=== PATIENT | female | born 1960 | race Caucasian/White ===

== ENCOUNTER 2023-10-04 11:29 | Emergency (ER) | payer BC, SELFPAY ==
[2023-10-04 11:49] VITALS: BP 154/85; PULSE 75; RESP 17; TEMP 36.6; O2SAT 96; BMI 28.3
--- NOTE | 2023-10-04 12:17 | ED_ITS ---
HPI - Ear Problem <KIMMY Cordova - Last Filed: 10/04/23 12:32> General Chief complaint: Ear Stated complaint: chronic both ear infection per pt Time Seen by Provider: 10/04/23 11:56 Source: patient Mode of arrival: Ambulatory History of Present Illness HPI Narrative: 63-year-old female, former smoker, presents to the emergency department with sinus and bilateral ear pressure and pain times 16 days. Patient states that she was seen twice in that time frame and diagnosed with Eustachian tube dysfunction and given Augmentin x7 days, prednisone and Afrin for 3 days. Second visit recommended Flonase nasal spray and to continue with the antibiotics. Patient contacted her family doctor about getting ENT referral but decided to come to the emergency department in case quicker treatment is possible. Last day of antibiotics was yesterday. Related Data Previous Rx's Medication Instructions Recorded amoxicillin 875 mg-potassium 1 tab PO BID Sinusitis 3 days #6 10/04/23 clavulanate 125 mg tablet tabs Allergies Allergy/AdvReac Type Severity Reaction Status Date / Time No Known Drug Allergies Allergy Verified 10/04/23 11:49 Review of Systems <KIMMY Cordova - Last Filed: 10/04/23 12:32> Review of Systems Narrative: Narrative: See HPI. GENERAL: Denies chills, fatigue, fever, sweats. HEENT: Denies sore throat, difficulty swallowing, dizziness. Endorses sinus pain and bilateral ear pain. RESPIRATORY: Denies dyspnea, cough, wheezing, sputum. CARDIOVASCULAR: Denies chest pain, palpitations, edema. GASTROINTESTINAL: Denies nausea, vomiting, abdominal pain, diarrhea, constipation. : Denies dysuria, frequency, incontinence, hematuria, urinary retention, flank pain. MSK: Denies weakness, joint pain, or bony pain. SKIN: Denies rash, skin lesions, or pruritis. NEUROLOGIC: Denies weakness, dizziness, headache, numbness, confusion. PSYCHIATRIC: No concerning psychosocial issues. Patient History <KIMMY Cordova - Last Filed: 10/04/23 12:32> Social History Smoking Status: Former smoker Smoking Status: Former smoker Substance Use Type: does not use Exam <KIMMY Cordova - Last Filed: 10/04/23 12:32> Narrative Exam Narrative: Exam Narrative: GENERAL: This is a well-nourished, well-developed patient, in no acute distress. HEAD: Atraumatic. Normocephalic. EYES: Pupils equal round and reactive. Extraocular motions intact. No scleral icterus, injection or drainage. ENT: Nose without bleeding, purulent drainage. Throat without erythema, tonsillar hypertrophy or exudate. Uvula midline. Airway patent. TMs and canals clear, with significant effusion. Pansinus tenderness. NECK: Trachea midline. No JVD or lymphadenopathy. Nontender. CARDIOVASCULAR: Regular rate and rhythm without murmurs, peripheral pulses intact, cap refill <2 sec. RESPIRATORY: Breath sounds equal and clear bilaterally. No wheezes, rales, or rhonchi. No cough. No increased respiratory effort. No accessory muscle use. MSK: Moves all extremities. Normal range of motion, no clubbing or edema. Neurovascularly intact. NEURO: A&O x 3. SKIN: Warm, dry, no rashes or lesions noted. Initial Vital Signs Initial Vital Signs: Vital Signs Temperature 97.8 F 10/04/23 11:49 Pulse Rate 75 10/04/23 11:49 Respiratory Rate 17 10/04/23 11:49 Blood Pressure 154/85 H 10/04/23 11:49 Pulse Oximetry 96 10/04/23 11:49 Oxygen Delivery Method Room Air 10/04/23 11:49 Reviewed <Terrence Berger DO - Last Filed: 10/04/23 12:51> Initial Vital Signs Initial Vital Signs: Vital Signs Temperature 97.8 F 10/04/23 11:49 Pulse Rate 75 10/04/23 11:49 Respiratory Rate 17 10/04/23 11:49 Blood Pressure 154/85 H 10/04/23 11:49 Pulse Oximetry 96 10/04/23 11:49 Oxygen Delivery Method Room Air 10/04/23 11:49 Course <KIMMY Cordova - Last Filed: 10/04/23 12:32> Vital Signs Vital signs: Vital Signs - 8 hr 10/04/23 11:49 Temperature 97.8 F Pulse Rate 75 Respiratory Rate 17 Blood Pressure 154/85 H Pulse Oximetry 96 Oxygen Delivery Method Room Air <Terrence Berger DO - Last Filed: 10/04/23 12:51> Vital Signs Vital signs: Vital Signs - 8 hr 10/04/23 11:49 Temperature 97.8 F Pulse Rate 75 Respiratory Rate 17 Blood Pressure 154/85 H Pulse Oximetry 96 Oxygen Delivery Method Room Air Medical Decision Making <Terrence GonsalvesKIMMY uribe - Last Filed: 10/04/23 12:32> Differential Diagnosis Differential Diagnosis: Sinusitis, Eustachian tube dysfunction, otitis media, a llergic rhinitis MDM Narrative Medical decision making narrative: 63-year-old female with bilateral ear pain and sinus pressure. Assessment was encouraging and consistent with Eustachian tube dysfunction and residual sinusitis. I will extend the antibiotic regimen from 7 days to 10 days. For the Eustachian tube dysfunction, recommended Sudafed 60 mg every 6 hours as needed. Recommended patient follow up with family doctor for possible ENT referral. Discussed plan of care and return precautions with patient, verbalized understanding and was agreeable with course of action. Discharge Plan Departure Patient Disposition: Home Clinical Impression: Acute dysfunction of both eustachian tubes Instructions: DI for Eustachian Tube Dysfunction-Adult Activity Restrictions/Additional Instructions: *You have been diagnosed with Eustachian tube dysfunction. Since you were treated for a sinus infection for 7 days, I will extend this treatment to a full 10 days with the same antibiotic. Please pick this up and begin this medication today. For Eustachian tube dysfunction, I recommend Sudafed 60 mg every 6 hours as needed. After taking the medication, wait 30 minutes to an hour and then try to gently Valsalva (equalize your ears). Also, please make sure you are drinking adequate amount of water -60 oz per day. Please continue to follow up with your family doctor and possible ENT. *What to do: *Please continue to take your regular medications as directed. [x ] New medication prescriptions sent to your pharmacy: [[facility] in [place]] [ ] New medication written as a paper prescription [ ] No new medications given *Please follow up with your primary care provider in 2-3 days, call for an appointment. Let them know you were seen in the Emergency Department and that we ask that you be seen in follow up. We will electronically transmit a record of today's note if your PCP is in our system *If you do not have a primary care provider please contact the [facility] Resource line at [phone]. They will ask some questions about your medical history and help get you set up with a doctor in the community. ? Return to ER if you should have any new, worsening or concerning symptoms, such as worsening pain, severe headache, confusion, chest pain, difficulty breathing, fever greater than 101 F, shaking chills, persistent vomiting to the point that you cannot drink fluids, or other new or worsening symptoms. Prescriptions: New amoxicillin-pot clavulanate 875-125 mg tablet 1 tab PO BID 3 Days Qty: 6 0RF Stand Alone Forms: Patient Portal/API ED Sign-out <Terrence Berger, - Last Filed: 10/04/23 12:51> Cosign ED Attending Cosignature Attestation: Dr Berger Co-Sign Statement: I was available for consultation during this patient's emergency department visit. This chart is signed by myself for administrative purposes only. I did not have direct contact with this patient during this visit. They were seen independently by the APC.
== END 2023-10-04 12:34 | disposition home or self-care (01) ==
PROVIDERS: Emergency Provider Registered Nurse
DX: H69.83 Other specified disorders of Eustachian tube, bilateral (principal)
CPT/HCPCS: 99281; 99282